=== PATIENT | male | born 1965 | race African-American/Black ===

== ENCOUNTER → 2017-02-11 | Day surgery (SDC) | payer OTHER ==
[~2017-02-11] VITALS: Ht 172.7 cm; Wt 90.7 kg
[~2017-02-11] MED LIST: AMLODIPINE BESY10 M1 PO; ATORVASTATIN CA40 MG PO; CIPRO 500MG TA500 MG PO; CYCLOBENZAPRINE5 M2 PO; DICLOFENAC SODI50 M1 PO; ECOTRIN81 MG PO; FLEXERIL10 MG PO; FLUOXETINE HYDR20 MG PO; HYDROCHLOROTH12.5 M1 PO; HYDROCHLOROTH12.5 M2 PO; HYDRODIURIL 2525 MG PO; LASIX20 MG PO; LISINOPRIL20 MG PO; LOPRESSOR 25MG25 MG PO; NAPROSYN500 M1 PO; NAPROXEN500 MG PO; NEURONTIN300 MG PO; NORCO 325 MG-51 TAB PO; PERCOCET 325 MG1 TA2 PO; PRINIVIL 5MG5 MG PO; VICODIN 300 MG-1 TAB PO; VICODIN ES 7.51 EACH PO; VOLTAREN GEL1% TOP; ZESTRIL40 MG PO
--- NOTE | 2017-02-11 13:12 | Operative Report ---
Operative/Inv Procedure Report Surgery Date: 02/11/17 Name of Procedure: right renal ESWL. fluoroscopy Pre-Operative Diagnosis: right renal stone 6mm Post-Operative Diagnosis: same Estimated Blood Loss: none Surgeon/Forepart Laster: GUDELIA LLANES MD Anesthesia: moderate sedation Complications: none Operative/Procedure Note Note: The patient was taken to the operating room and placed on the ESWL table in supine position. The patient's right flank was positioned over the table cut- out overlying the dome of the treatment head. Timeout was performed, with the patient awake, in order to confirm the correct identity, side, anesthesia, procedure and other pertinent torsten-operative information. The patient was then anesthesized. Once the patient was adequately sedated, fluoroscopy, as well as Renal ultrasound was used to locate the right renal stone. Renal US was used to confirm the placement of the stone, and measured it to be approximately 6 mm in size at the right renal pelvis. Additionally, renal U/S revealed no hydronephrosis, and no solid tumor. With the stone's position optimized, using AP and oblique fluoroscopy views, the right renal E.S.W.L. was initiated at low energy level. After noting the patient's tolerance to the shockwaves, the intensitiy was ramped up to maximum level. At the end of the procedure, the composition of the right renal stone had changed significantly, indicating the shattering of the renal stone. Of note, a total of 2500 shockwaves were delivered to the stones. The patient tolerated the ESWL procedure well, was awakened, then taken to recovery in satisfactory condition via stretcher. The patient was dischared home with pain medications, diet orders, and intructions to catch fragments by straining the urine. The patient to to have follow-up renal ultrasound and KUB in 1 to 2 weeks, prior to follow-up visit in my office. Discharge Disposition: PACU CC: GUDELIA LLANES MD
== END ==
LOC: STS 03:08
DX: N20.0 Calculus of kidney (principal); I10 Essential (primary) hypertension; Z86.73 Personal history of transient ischemic attack (TIA), and cerebral infarction without residual deficits; Z87.891 Personal history of nicotine dependence
CPT/HCPCS: 36415; 93005; 93010

== ENCOUNTER → 2018-07-02 | Day surgery (SDC) | payer OTHER, MEDICARE ==
[~2018-07-02] VITALS: Ht 172.7 cm; Wt 86.2 kg
[~2018-07-02] MED LIST changes: +ATORVASTATIN CA40 M1 PO
--- NOTE | 2018-07-02 11:25 | Operative Report ---
Operative/Inv Procedure Report Surgery Date: 07/02/18 Name of Procedure: Cataract extraction with intraocular lens implantation right eye Pre-Operative Diagnosis: Age-related cataract right eye Post-Operative Diagnosis: Same Estimated Blood Loss: none Surgeon/Pantry Attendant: Marcos Vizcarra MD Anesthesia: local monitored anesthesi Complications: None Operative/Procedure Note Note: Preoperatively the patient was noted to have counting fingers vision in the right eye . The risks, benefits, and alternatives to surgery were discussed at length with the patient. Informed consent was obtained. The patient was brought to the operating room where the right eye was prepped and draped in the normal sterile fashion. A speculum was placed on the right eye with good exposure. The axis of the limbal relaxing incision was marked. Using a danny blade at 600 depth, an incision spanning 45 degrees was made without complication. A limbal relaxing incision of equal length and depth was made 180 away.A stab incision was made using a paracentesis blade. Intracameral lidocaine was placed. Viscoelastic was used to form the anterior chamber. A clear corneal incision was made using keratome blade. A continuous curvilinear capsulorrhexis was made using a cystotome needle followed by Utrata forceps. There was no extension of the rhexis. Hydrodissection was performed using balanced salt solution. The cataract was removed using a stop and chop technique. Residual cortex was removed using coaxial irrigation and aspiration. The capsule was polished using irrigation and aspiration and the posterior capsule was cleaned using a balanced salt solution jet. There was no residual lens material inside the eye. The capsular bag was reformed using viscoelastic. An intraocular lens MX60E of power 6.0 was verified and confirmed. It was loaded into an injector and injected into the eye. The lens was placed entirely within the capsular bag. Viscoelastic was evacuated using irrigation and aspiration. The wounds were stromally hydrated and the eye filled to physiologic pressure using balanced salt solution. Intracameral cefuroxime was placed. Speculum was removed and a shield was placed on the eye. The patient was brought to the recovery area without incident. Instructions were given to follow-up the next day for routine postoperative care.
== END ==
LOC: STS 01:19
DX: H25.9 Unspecified age-related cataract (principal); I10 Essential (primary) hypertension; I25.10 Atherosclerotic heart disease of native coronary artery without angina pectoris; Z86.73 Personal history of transient ischemic attack (TIA), and cerebral infarction without residual deficits; Z87.891 Personal history of nicotine dependence; Z79.82 Long term (current) use of aspirin
CPT/HCPCS: V2632